=== PATIENT | male | born 1940 | race Caucasian/White ===

== ENCOUNTER → 2018-12-26 11:35 | Outpatient (CLI) | payer MEDICARE, SELFPAY ==
--- NOTE | 2018-12-26 | DI.MRI.S_ITS ---
PROCEDURE: MR LUMBAR SPINE WO CON INDICATIONS: Low back pain TECHNIQUE: Noncontrast sagittal T1 spin echo and T2 fast echo, coronal T2, sagittal STIR, axial T1 and T2 fast spin echo through the lumbar spine. COMPARISON: [facility], RG, SPINE LUMB 2 OR 3VW, 10/18/2018, 10:45. [facility], MR, MR LUMBAR SPINE WO CON, 12/26/2017, 16:15. FINDINGS: Image quality: Excellent. Alignment and Curvature: 5 lumbar type vertebral bodies are present by plain film. Moderate leftward curvature of the upper lumbar spine. Loss of normal lumbar lordosis. Mild kyphosis at the lower thoracic spine. Mild grade 1 retrolisthesis of L1 on L2, L2 on L3, and L3 on L4. Bone Marrow: Marrow is of normal overall signal. No acute vertebral body compression fractures. Moderate reactive signal within the endplates adjacent to the L2-L3 intervertebral disc. Mild reactive signal within them but adjacent to the L1-L2 and L2-L3 intervertebral discs. Spinal Cord: Conus medullaris terminates at the mid L2 level. Visualized cord demonstrates normal signal and size. Paraspinous Soft Tissues: No paravertebral masses. L1-L2: Severe disc height loss and desiccation. Mild diffuse disc bulge. Mild facet and ligamentum flavum hypertrophy. Mild canal stenosis. Mild bilateral foraminal stenosis. No change. L2-L3: Severe disc height loss and desiccation. Moderate diffuse disc bulge. Mild facet and ligamentum flavum hypertrophy. Moderate canal stenosis. Severe right and moderate left subarticular foraminal stenosis. Impingement upon the right L3 nerve root within the lateral recess. Flattening of the right L2 nerve root within the neural foramen. No change. L3-L4: Moderate disc height loss and desiccation. Mild diffuse disc bulge with small superimposed broad based left far lateral protrusion. Mild facet and ligamentum flavum hypertrophy bilaterally. Moderate to severe canal stenosis. Moderate subarticular foraminal stenosis bilaterally. No change. L4-L5: Moderate disc height loss and desiccation. Mild diffuse disc bulge with superimposed broad-based left far lateral protrusion. Mild facet and ligamentum flavum hypertrophy bilaterally. Moderate canal stenosis. Severe left and moderate right subarticular foraminal stenosis. Flattening of the left L4 nerve root within the neural foramen. No change. L5-S1: Mild disc height loss and desiccation. Mild diffuse disc bulge. Mild facet hypertrophy bilaterally. Mild canal stenosis. Moderate subarticular foraminal stenosis bilaterally. No change. IMPRESSION: 1. Multilevel degenerative disc and facet disease, as well as ligamentum flavum hypertrophy and epidural lipomatosis. 2. Multilevel canal stenoses, worst at L3-L4, where there is moderate to severe canal stenosis. Moderate canal stenoses at L2-L3 and L4-L5 are present. 3. Multilevel foraminal stenoses, worst at L2-L3 on the right, and at L4-L5 on the left, where there is intraforaminal nerve root flattening. Recommend correlation with clinical symptoms to ascertain relevance of this finding. 4. Right L3 nerve root impingement at the L2-L3 disc space level. Recommend correlation with clinical symptoms to ascertain relevance of this finding. Dictated by: Elaine Canela M.D. on 12/26/2018 at 15:55 Approved by: Elaine Canela M.D. on 12/26/2018 at 16:01
== END ==
PROVIDERS: PCP Student in an Organized Health Care Education/Training Program; Visit Provider Physical Medicine & Rehabilitation Pain Medicine
DX: M54.5 Low back pain (principal); M51.36 Other intervertebral disc degeneration, lumbar region; M51.37 Other intervertebral disc degeneration, lumbosacral region; M48.061 Spinal stenosis, lumbar region without neurogenic claudication; M48.07 Spinal stenosis, lumbosacral region; E88.2 Lipomatosis, not elsewhere classified
CPT/HCPCS: 72148